=== PATIENT | female | born 1960 | race Caucasian/White ===

== ENCOUNTER 2018-05-21 14:19 | Emergency (ER) | payer OTHER ==
[~2018-05-21] VITALS: Ht 157.5 cm; Wt 61.2 kg
[2018-05-21] MEDS ORDERED: ZIAC 2.5-6.251 EACH (15:33)
== END 2018-05-21 19:42 | disposition home or self-care (01) ==
LOC: ER 14:19 → EDSEX 15:46 → ER 19:42
DX: M54.2 Cervicalgia (principal); L04.0 Acute lymphadenitis of face, head and neck

== ENCOUNTER 2018-09-17 15:40 | Emergency (ER) | payer OTHER ==
[~2018-09-17] VITALS: Ht 157.5 cm; Wt 59.0 kg
[~2018-09-17 15:40] MED LIST: ZIAC 2.5-6.251 EACH
== END 2018-09-17 20:36 | disposition home or self-care (01) ==
LOC: ER 15:40
DX: T78.1XXA Other adverse food reactions, not elsewhere classified, initial encounter (principal); R21 Rash and other nonspecific skin eruption